=== PATIENT | male | born 1985 | race American Indian/Alaskan Native ===

== ENCOUNTER 2021-03-10 13:56 | Emergency (ER) | payer SELFPAY ==
[2021-03-10 14:32] VITALS: BP 134/81
--- NOTE | 2021-03-10 14:37 | Emergency Department Report ---
Blank Doc - Documentation Documentation: 35-year-old male that presents with hearing voices and voices telling him that he has a cheap in his head and wants imaging studies. Stated has not been taking any psych medications. Denies any SI/HI. 1- This initial assessment/diagnostic orders/clinical plan/ treatment(s) is/are subject to change based on pt's health status, clinical progression and re- assessment by fellow clinical providers in the ED. Further treatment and workup at subsequent clinical provers discretion. Patient/guardians urged not to elope from ED as their condition may be serious if not clinically assessed and managed. 2-psych orders
[2021-03-10 15:01] LABS: Basophils % (Auto) 0.9 % (0.0-1.8); Eosinophils # (Auto) 0.1 K/mm3 (0.0-0.4); Eosinophils % (Auto) 2.8 % (0.0-4.3); Hematocrit 43.3 % (35.5-45.6); Hemoglobin 14.7 gm/dl (11.8-15.2); Lymphocytes # (Auto) 1.6 K/mm3 (1.2-5.4); Lymphocytes % (Auto) 36.6 % (13.4-35.0); Mean Corpuscular HGB Conc 34 % (32-34); Mean Corpuscular Volume 96 fl (84-94); Monocytes # (Auto) 0.5 K/mm3 (0.0-0.8); Platelet Count 200 K/mm3 (140-440); Red Blood Count 4.49 M/mm3 (3.65-5.03); Red Cell Distribution Width 14.2 % (13.2-15.2)
[2021-03-10 15:18] LABS: BUN/Creatinine Ratio 12; Blood Urea Nitrogen 11 mg/dL (9-20); Calcium 9.1 mg/dL (8.4-10.2); Hemolysis Index 7
[2021-03-10] MEDS ORDERED: LORazepam 1 MG TAB PO ONE (15:25)
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
== END 2021-03-10 16:11 | disposition home or self-care (01) ==
LOC: ED 13:56
DX: F25.9 Schizoaffective disorder, unspecified (principal); F17.200 Nicotine dependence, unspecified, uncomplicated; Z91.013 Allergy to seafood; Z91.041 Radiographic dye allergy status
CPT/HCPCS: 36415; 72020; 80048; 80320; 85025; G0480